=== PATIENT | female | born 1970 | race Hispanic/Latino ===

== ENCOUNTER 2018-04-14 16:55 | Inpatient (IN) | payer OTHER ==
[~2018-04-14] VITALS: Ht 157.5 cm; Wt 96.9 kg
--- OUTSIDE RECORDS SUMMARY | 2018-04-14 16:59 | XMS REPORT | Continuity of Care Document ---
Author Author [facility] Interface Address Unknown Phone Unavailable Problems Problem Status Onset Date Classification Date Reported Comments Source DIVERTICULITIS Active 12/20/2014 Condition 12/29/2014 [facility] COLOSTOMY Active 12/20/2014 Condition 12/29/2014 [facility] Medications Medication Details Route Status Patient Instructions Ordering Provider Order Date Source Allergies, Adverse Reactions, Alerts Substance Category Reaction Severity Reaction type Status Date Reported Comments Source Immunizations Immunization Date Given Site Status Last Updated Comments Source Results Order Name Results Value Reference Range Date Interpretation Comments Source Vital Signs Vital Sign Value Date Comments Source Weight 160 12/29/2014 [facility] Temperature Oral (F) 98.1 F 12/29/2014 [facility] Weight 165 12/20/2014 [facility] Temperature Oral (F) 97.9 F 12/20/2014 [facility] Heart Rate 80 12/20/2014 [facility] Systolic (mm Hg) 125 12/20/2014 [facility] Diastolic (mm Hg) 81 12/20/2014 [facility] Encounters Location Location Details Encounter Type Encounter Number Reason For Visit Attending Provider ADM Date DC Date Status Source [facility] Colorectal Surgery Office Visit [id number] Rosanna Plata MD 12/20/2014 12/20/2014 [facility] Colorectal Surgery Office Visit [id number] Rosanna Plata MD 12/29/2014 12/29/2014 [facility] Procedures Procedure Code Date Perfomer Comments Source
--- OUTSIDE RECORDS SUMMARY | 2018-04-14 16:59 | XMS REPORT | Continuity of Care Document ---
Author Author [facility] Organization [facility] Address Unknown Phone Unavailable Care Team Providers Care Dowel Maker Name Role Phone MD Boni, Rosanna Unavailable Insurance Providers Payer name Policy type / Coverage type Policy ID Covered republican ID Policy [place] [employer] (O) Encounters Encounter Performer Location Date Office Visit Rosanna Plata MD [facility] Colorectal Surgery Dec 20, 2014 Problems Problem Effective Dates Problem Status DIVERTICULITIS Dec 20, 2014 Active COLOSTOMY Dec 20, 2014 Active Procedures Date Description Comments Dec 20, 2014 smoking status Former smoker Vital Signs Date Description Test Result Dec 20, 2014 weight E&M - 3141-9 WEIGHT 165 lb Dec 20, 2014 temperature E&M TEMPERATURE 97.9 deg f Dec 20, 2014 pulse rate E&M - 8867-4 PULSE RATE 80 /min Dec 20, 2014 blood pressure, systolic - 8480-6 BP SYSTOLIC 125 mm Hg Dec 20, 2014 blood pressure, diastolic - 8462-4 BP DIASTOLIC 81 mm Hg
--- OUTSIDE RECORDS SUMMARY | 2018-04-14 16:59 | XMS REPORT | Continuity of Care Document ---
Author Author [facility] Organization [facility] Address Unknown Phone Unavailable Care Team Providers Care Sterile Tech Name Role Phone MD Boni, Rosanna Unavailable Insurance Providers Payer name Policy type / Coverage type Policy ID Covered democrat ID Policy [place] [employer] (O) Encounters Encounter Performer Location Date Office Visit Rosanna Plata MD [facility] Colorectal Surgery Dec 29, 2014 Problems Problem Effective Dates Problem Status [...] - 8462-4 BP DIASTOLIC 81 mm Hg Dec 29, 2014 weight E&M - 3141-9 WEIGHT 160 lb Dec 29, 2014 temperature E&M TEMPERATURE 98.1 deg f
[2018-04-14] MEDS ORDERED: SODIUM CHLORIDE 0.9% 1000ML 1,000 ML ONE (17:16)
[2018-04-14] MEDS ORDERED: INSULIN REGULAR, HUMAN 100 UNIT/1 ML 3ML VIAL ONE ×2 (17:17→19:22)
[2018-04-14] MEDS ORDERED: SODIUM CHLORIDE 0.9% 1000ML 1,000 ML IV SCH (17:30)
[2018-04-14] MEDS ORDERED: ONDANSETRON HCL INJ 2 MG/ML VIAL IV STA (17:44)
[2018-04-14 17:56] LABS: BASOPHILS # (AUTO) 0.1 (0.0-0.1); BASOPHILS % 1.5 % (0.0-1.0); EOSINOPHILS % 0.4 % (0.0-6.0); HEMATOCRIT 51.6 % (34.2-44.1); HEMOGLOBIN 17.3 g/dL (12.0-16.0); LYMPHOCYTES # (AUTO) 1.1 (1.0-3.2); LYMPHOCYTES % 15.6 % (18.0-39.1); MEAN CORPUSCULAR HEMOGLOBIN 30.8 pg (28-32); MEAN CORPUSCULAR HGB CONC 33.5 g/dL (31-35); MONOCYTES # (AUTO) 0.8 (0.2-0.8); MONOCYTES % 11.1 % (4.4-11.3); NEUTROPHILS % 70.6 % (38.7-80.0); PLATELET COUNT 251 x10e3/uL (140-360); RED BLOOD COUNT 5.61 x10e6/uL (3.6-5.1); RED CELL DISTRIBUTION WIDTH 13.9 % (11.7-14.4)
[2018-04-14 17:58] LABS: BILIRUBIN,URINE 1+ (NEGATIVE); CLARITY,URINE SL CLOUDY (CLEAR); COLOR,URINE YELLOW (YELLOW); KETONES,URINE 2+ (NEGATIVE); LEUKOCYTE ESTERASE ,URINE NEGATIVE (NEGATIVE); NITRITE,URINE NEGATIVE (NEGATIVE); PROTEIN,URINE DIPSTICK TRACE (NEGATIVE); URINE UROBILINOGEN 0.2 mg/dL (0.2 - 1)
--- NOTE | 2018-04-14 18:08 | Diagnostic Imaging Report ---
EXAMINATION: PA and lateral views of the chest. COMPARISON: None CLINICAL HISTORY: Elevated blood sugar DISCUSSION: Lines/tubes: None. Lungs: The lungs are well inflated and clear. No pneumonia or pulmonary edema. Pleura: No pleural effusion or pneumothorax. Heart and mediastinum: The cardiomediastinal silhouette is normal. Bones and soft tissues: No acute bony abnormalities. IMPRESSION: No acute cardiopulmonary abnormalities. Signed by: Dr. Matteo Harrison M.D. on 04/14/2018 6:05 PM
[2018-04-14 18:11] LABS: WBC,URINE (MAN) 0-5 /HPF (0-5)
[2018-04-14] MEDS ORDERED: INSULIN REGULAR, HUMAN 100 UNIT/1 ML 3ML VIAL SQ NR (18:30)
[2018-04-14 18:32] LABS: ALANINE AMINOTRANSFERASE 33 IU/L (0-55); ALBUMIN 4.4 g/dL (3.5-5.0); ALKALINE PHOSPHATASE 163 IU/L (40-150); ANION GAP 29.1 mmol/L (8-16); BLOOD UREA NITROGEN 16 mg/dL (7-26); BUN/CREATININE RATIO 11 (6-25); CALCIUM 10.2 mg/dL (8.4-10.2); CARBON DIOXIDE 14 mmol/L (22-29); CHLORIDE 96 mmol/L (98-107); CREATINE KINASE 120 IU/L (29-168); EST GLOMERULAR FILTRATION RATE 37 ML/MIN (60-); SODIUM 132 mmol/L (136-145)
[2018-04-14 18:34] LABS: GLUCOSE 645 mg/dL (74-118)
[2018-04-14 18:35] LABS: POTASSIUM 7.1 mmol/L (3.5-5.1)
[2018-04-14 19:05] LABS: ALBUMIN 3.8 g/dL (3.5-5.0); ALBUMIN/GLOBULIN RATIO 1.3 (0.8-2.0); ANION GAP 23.1 mmol/L (8-16); CALCIUM 8.9 mg/dL (8.4-10.2); CREATININE, SERUM 1.26 mg/dL (0.57-1.11); POTASSIUM 4.1 mmol/L (3.5-5.1)
[2018-04-14] MEDS: SODIUM CHLORIDE 0.9% 1000ML 1,000 ML IV SCH ×2 (19:16→23:16)
[2018-04-14] MEDS ORDERED: SODIUM CHLORIDE 0.9% 100 ML ONE (19:21)
[2018-04-14] MEDS ORDERED: MAGNESIUM SULF 1GRAM/DEXTROSE 100 ML IV PRN (19:30)
[2018-04-14] MEDS ORDERED: INSULIN DETEMIR 100 UNIT/ML PEN SQ PRN (19:30)
[2018-04-14] MEDS ORDERED: INSULIN REGULAR, HUMAN 3ML VL 100 UNIT in SODIUM CHLORIDE 0.9% 99 ML IV SCH ×2 (19:30)
[2018-04-14] MEDS ORDERED: POTASSIUM CHLORIDE 20MEQ/100ML 200 ML IV PRN ×2 (19:30→19:45)
[2018-04-14] MEDS ORDERED: POTASSIUM CHLORIDE 20MEQ/100ML 100 ML INJ PRN (19:45)
--- OUTSIDE RECORDS SUMMARY | 2018-04-14 21:02 | XMS REPORT ---
Author Author [facility] Address Unknown Phone Unavailable Care Team Providers Care Manager Fine Dining Name Role Phone Reahn PURVIS Unavailable Unavailable Problems This patient has no known problems. Allergies, Adverse Reactions, Alerts This patient has no known allergies or adverse reactions. Medications This patient has no known medications. Results Test Description Test Time Test Comments Text Results Atomic Results Result Comments CHEST 2 VIEWS 2018-04-14 18:05:00 [place] [id number] Patient Name: RODRIGO PATIÑO MR #: [id number] : 1970 Age/Sex: 48/F Req #: [id number] Adm Physician: Ordered by: LAUREN PURVIS MD Report #: [id number] Location: ER Room/Bed: Procedure: [id number] DX/CHEST 2 VIEWS Exam Date: 04/14/18 Exam Time: 1746 REPORT STATUS: Signed EXAMINATION: PA and lateral views of the chest. CO MPARISON: None CLINICAL HISTORY: Elevated blood sugar DISCUSSION: Lines/tubes: None. Lungs: The lungs are well inflated and clear. No pneumonia or pulmonary edema. Pleura: No pleural effusion or pneumothorax. Heart and mediastinum: The cardiomediastinal silhouette is normal. Bones and soft tissues: No acute bony abnormalities. IMPRESSION: No acute cardiopulmonary abnormalities. Signed by: Dr. Raymundo Nicholson M.D. on 04/14/2018 6:05 PM Dictated By: RAYMUNDO NICHOLSON MD 04 Transcribed By: MIGUEL on 04/14/181804 COPY TO: LAUREN PURVIS MD
[2018-04-14 21:28] LABS: ABG PH 7.27 (7.31-7.41)
[2018-04-14 21:29] LABS: ABG HCO3 14 mmol/L (23-28); ABG PCO2 31 mmHg (41-51); ABG PO2 99 mmHg (80-105)
[2018-04-14] MEDS: DEXTROSE 5%/0.45% SOD CHL 1,000 ML IV SCH (21:49)
[2018-04-14 22:41] VITALS: BP 116/70
[2018-04-14 22:45] VITALS: BP 110/71
[2018-04-14 23:00] VITALS: BP 119/78
[2018-04-14 23:22] VITALS: BP 110/71
[2018-04-15] VITALS (18 sets, daily range): BP systolic 30–135; BP diastolic 62–92
[2018-04-15 00:13] LABS: CALCIUM 9.3 mg/dL (8.4-10.2); CREATININE, SERUM 1.07 mg/dL (0.57-1.11)
[2018-04-15] MEDS ORDERED: POTASSIUM CHLORIDE 20MEQ/100ML 200 ML ONE (00:23)
[2018-04-15] MEDS: SODIUM CHLORIDE 0.9% 1000ML 1,000 ML IV SCH ×2 (03:16→05:48)
[2018-04-15] MEDS: DEXTROSE 5%/0.45% SOD CHL 1,000 ML IV SCH (05:16)
[2018-04-15 05:23] LABS: ANION GAP 11.1 mmol/L (8-16); CALCIUM 9.6 mg/dL (8.4-10.2); CREATININE, SERUM 1.06 mg/dL (0.57-1.11); MAGNESIUM 2.1 MG/DL (1.3-2.1); POTASSIUM 4.1 mmol/L (3.5-5.1)
[2018-04-15] MEDS ORDERED: INSULIN DETEMIR 100 UNIT/ML PEN SQ ONE (05:48)
[2018-04-15] MEDS ORDERED: ACETAMINOPHEN 325 MG TAB PO PRN (08:15)
[2018-04-15 08:24] LABS: BLOOD UREA NITROGEN 16 mg/dL (7-26); BUN/CREATININE RATIO 18 (6-25); CALCIUM 9.4 mg/dL (8.4-10.2); CARBON DIOXIDE 16 mmol/L (22-29); CHLORIDE 110 mmol/L (98-107); CREATININE, SERUM 0.87 mg/dL (0.57-1.11); EST GLOMERULAR FILTRATION RATE > 60 ML/MIN (60-); GLUCOSE 189 mg/dL (74-118); MAGNESIUM 2.2 MG/DL (1.3-2.1); SODIUM 138 mmol/L (136-145)
[2018-04-15] MEDS ORDERED: SODIUM CHLORIDE 0.9% 1000ML 1,000 ML IV SCH (08:30)
[2018-04-15] MEDS ORDERED: DEXTROSE 50% SYRINGE 50 ML IV PRN (08:45)
[2018-04-15] MEDS ORDERED: INSULIN REGULAR, HUMAN 100 UNIT/1 ML 3ML VIAL SQ SCH (11:30)
[2018-04-15] MEDS: INSULIN LISPRO 100 UNIT/1 ML 3ML VIAL SQ SCH ×3 (12:13→21:30)
[2018-04-15] MEDS: METFORMIN HCL 500 MG TAB PO SCH (16:17)
[2018-04-15] MEDS ORDERED: ATORVASTATIN 20 MG TAB PO SCH (21:00)
[2018-04-16] VITALS: BP 119/70
[2018-04-16 04:00] VITALS: BP 144/90
[2018-04-16 05:41] LABS: BASOPHILS # (AUTO) 0.1 (0.0-0.1); BASOPHILS % 1.5 % (0.0-1.0); EOSINOPHILS # (AUTO) 0.1 (0.0-0.4); EOSINOPHILS % 2.7 % (0.0-6.0); HEMATOCRIT 43.3 % (34.2-44.1); HEMOGLOBIN 14.7 g/dL (12.0-16.0); LYMPHOCYTES % 25.2 % (18.0-39.1); MEAN CORPUSCULAR HEMOGLOBIN 30.9 pg (28-32); MEAN CORPUSCULAR HGB CONC 33.9 g/dL (31-35); MEAN CORPUSCULAR VOLUME 91.2 fL (81-99); MONOCYTES # (AUTO) 0.6 (0.2-0.8); MONOCYTES % 15.3 % (4.4-11.3); NEUTROPHILS # (AUTO) 2.3 (2.1-6.9); NEUTROPHILS % 54.6 % (38.7-80.0); PLATELET COUNT 173 x10e3/uL (140-360); RED BLOOD COUNT 4.75 x10e6/uL (3.6-5.1); RED CELL DISTRIBUTION WIDTH 13.7 % (11.7-14.4)
[2018-04-16 06:07] LABS: ANION GAP 13.5 mmol/L (8-16); BLOOD UREA NITROGEN 15 mg/dL (7-26); BUN/CREATININE RATIO 19 (6-25); CALCIUM 8.5 mg/dL (8.4-10.2); CARBON DIOXIDE 20 mmol/L (22-29); CHLORIDE 102 mmol/L (98-107); CREATININE, SERUM 0.78 mg/dL (0.57-1.11); EST GLOMERULAR FILTRATION RATE > 60 ML/MIN (60-); GLUCOSE 380 mg/dL (74-118); MAGNESIUM 1.8 MG/DL (1.3-2.1); POTASSIUM 3.5 mmol/L (3.5-5.1); SODIUM 132 mmol/L (136-145)
[2018-04-16 06:37] LABS: FREE T4 (FREE THYROXINE) 0.84 ng/dL (0.9-1.8); THYROID STIMULATING HORMONE 14.987 uIU/mL (0.350-4.940)
[2018-04-16 07:58] VITALS: BP 122/80
[2018-04-16 08:00] VITALS: BP 122/80
[2018-04-16] MEDS: METFORMIN HCL 500 MG TAB PO SCH (08:44)
[2018-04-16] MEDS: INSULIN LISPRO 100 UNIT/1 ML 3ML VIAL SQ SCH ×2 (08:44→12:08)
[2018-04-16 12:04] VITALS: BP 109/75
--- NOTE | 2018-04-16 14:21 | Discharge Summary ---
PRIMARY CARE DOCTOR: Dr. Hmuberto Centeno with [facility] FINAL DIAGNOSIS: Mild diabetic ketoacidosis. SECONDARY DIAGNOSES 1. Newly diagnosed diabetes. 2. Morbid obesity. 3. Hypothyroidism. 4. Mild acute renal failure, resolved after intravenous fluids. GUEST RELATION OFFICER: None. PROCEDURES/STUDIES PERFORMED: None. HISTORY: Per H and P. HOSPITAL COURSE: The patient was admitted with mild DKA. The patient was on insulin drip for a few hours. Her anion gap closed. She was transitioned to metformin given her morbid obesity. In talking to her, the patient has had weight gain while not eating much and also severe constipation. Therefore, her TSH and free T4 were checked. Her TSH is 15. Her free T4 is suppressed at 0.8. We will start her on levothyroxine as well. Of note, her A1c is 15%. I have updated her PCP about this hospitalization. The patient was seen and examined today. It took 32 minutes total to discharge this patient. CONDITION ON DISCHARGE: Improved. DISCHARGE MEDICATIONS: Please see medication reconciliation form. QUEENIE ABDUL M.D. Job#: [id number] cc:HUMBERTO CENTENO MD
[2018-04-16] MEDS ORDERED: METFORMIN HCL500 MG PO (15:03)
[2018-04-16] MEDS ORDERED: LEVOTHYROXINE100 MC1 PO (15:04)
[2018-04-16] MEDS ORDERED: METFORMIN HCL 500 MG TAB PO SCH (17:00)
== END 2018-04-16 15:43 | disposition home or self-care (01) | DRG 638 ==
LOC: ER 16:55 → ERHOLD 20:16 → ICU 22:28 → MED/SURG3 04-15 22:00
PROVIDERS: ADMIT Internal Medicine; ATTEND Internal Medicine
DX: E11.10 Type 2 diabetes mellitus with ketoacidosis without coma (principal); N17.9 Acute kidney failure, unspecified; E66.01 Morbid (severe) obesity due to excess calories; Z68.39 Body mass index [BMI] 39.0-39.9, adult; E03.9 Hypothyroidism, unspecified; E86.0 Dehydration; K59.00 Constipation, unspecified
CPT/HCPCS: 36415; 36600; 71046; 80048; 80053; 80061; 81001; 82550; 82553; 82805; 82948; 83036; 83690; 83735; 84439; 84443; 84484; 85025; 93005; 99284; J2405; J3480; J7030; J7050